=== PATIENT | female | born 1940 | race Two or more races ===

== ENCOUNTER 2019-09-25 13:43 | Outpatient (CLI) | payer OTHER | END 2019-09-25 13:45 | disposition home or self-care (01) | LOC: RAD 13:43 | DX: I10 Essential (primary) hypertension (principal) ==

== ENCOUNTER 2019-11-23 07:25 | Day surgery (SDC) | payer OTHER ==
[~2019-11-23 07:25] MED LIST: BUMETANIDE2 MG PO; CITALOPRAM PO; COQ PO; COREG PO; COZAAR100 MG PO; ELIQUIS2.5 MG PO; FEMARA2.5 MG PO; GABAPENTIN300 M2 PO; HUMULI; HUMULIN; INDUR PO; JANUVIA100 MG PO; NTG SL; PEPCID AC20 MG PO; SIMVASTATIN10 MG PO; SYNTHROID50 MCG PO
== END 2019-11-23 20:20 | disposition home or self-care (01) ==
LOC: CIR.AMB 07:25
PROVIDERS: ATTEND Surgery
DX: C50.412 Malignant neoplasm of upper-outer quadrant of left female breast (principal); Z20.828 Contact with and (suspected) exposure to other viral communicable diseases